=== PATIENT | female | born 1955 | race Caucasian/White ===

== ENCOUNTER 2019-02-08 08:10 | Day surgery (SDC) | payer OTHER ==
[2019-02-08] MEDS ORDERED: LIDOCAINE 2% (SDV) 5 ML INJ (09:22)
[2019-02-08] MEDS ORDERED: PROPOFOL 20 ML (09:22)
[2019-02-08] MEDS ORDERED: ETOMIDATE 20 MG INJ (09:23)
[2019-02-08] MEDS ORDERED: FENTAnyl 50 MCG/ML VIAL (09:23)
[2019-02-08] MEDS ORDERED: LIDOCAINE 4% SOLUTION 50 ML BTL (09:23)
[2019-02-08] MEDS ORDERED: MIDAZOLAM 1 MG/ML 2 ML INJ (09:23)
== END 2019-02-08 15:09 | disposition home or self-care (01) ==
LOC: GIL 08:10
DX: Z12.11 Encounter for screening for malignant neoplasm of colon (principal); K64.8 Other hemorrhoids; D12.3 Benign neoplasm of transverse colon; K29.50 Unspecified chronic gastritis without bleeding; I12.9 Hypertensive chronic kidney disease with stage 1 through stage 4 chronic kidney disease, or unspecified chronic kidney disease; N18.9 Chronic kidney disease, unspecified; E11.9 Type 2 diabetes mellitus without complications
CPT/HCPCS: 43239; 88305; 88312